=== PATIENT | female | born 1945 | race Caucasian/White ===

== ENCOUNTER → 2020-07-23 | Outpatient (CLI) | payer MEDICARE, OTHER ==
[~2020-07-23] MED LIST: IOHEXOL 240 MG/ML 50ML VIAL. ONE; IOHEXOL 240 MG/ML 50ML VIAL. PO ONE; IOHEXOL 300 MG/ML 75 ML VIAL. IV ONE
[2020-07-23 10:42] LABS: CREATININE 0.8 mg/dL (0.6-1.0); GFR 69.7
--- NOTE | 2020-07-23 17:09 | RAD ---
PQRS Compliance Statement: One or more of the following individualized dose reduction techniques were utilized for this examinat ion: 1. Automated exposure control 2. Adjustment of the mA and/or kV according to patient size 3. Use of iterative reconstruction technique CT abdomen/pelvis with contrast 07/23/2020 10:08 AM INDICATION: Left upper quadrant abdominal pain, lower pelvic pain COMPARISON: None available TECHNIQUE: Multiple axial CT images of the abdomen and pelvis were obtained after the intravenous adm inistration of 75 mL nonionic contrast. Coronal and sagittal reformats are provided. FINDINGS: There is an 8 mm solid noncalcified pulmonary nodule in the right middle lobe (series 2, image 5). He art size is within normal limits. There is a 2.7 x 1.9 cm cyst in the lateral right lower lobe. No huang spicious hepatic lesions. Liver, spleen, bilateral adrenal gland, pancreas and gallbladder are normal in appearance. Abdominal aorta is normal in course and caliber with dense calcified atheromatous vivien que. There are no pathologically enlarged lymph nodes identified within the abdomen and pelvis. There is no free fluid or free intraperitoneal air. The kidneys enhance symmetrically. There is no suspicious renal mass. There is no hydronephrosis. The re are no suspected calculi within the kidneys, ureters or urinary bladder. There is moderate to advanced colonic diverticulosis without adjacent inflammatory changes. Oral cont rast was administered. Opacified bowel loops since her normal mucosal fold pattern. Appendix is not d efinitively visualized. No pericecal inflammatory changes are identified. Stomach is normal in appear ance. Urinary bladder is within normal limits given degree of distention. No suspicious pelvic mass. No suspicious osseous abnormality is identified. There is moderate to advanced disc height loss at L5 -S1 with endplate degenerative changes. IMPRESSION: 1. There is an 8 mm solid noncalcified pulmonary nodule in the right middle lobe. Recommended 3-6 mon th follow-up chest CT. 2. No pathologically enlarged lymph nodes are identified within the abdomen and pelvis. 3. Moderate to advanced colonic diverticulosis without adjacent inflammatory changes. Electronically signed by: Valentina Palmer MD (07/23/2020 5:07 PM) [id number]
== END ==
LOC: CT 09:31
PROVIDERS: ATTEND Family Medicine
DX: K57.30 Diverticulosis of large intestine without perforation or abscess without bleeding (principal); R91.1 Solitary pulmonary nodule; M47.817 Spondylosis without myelopathy or radiculopathy, lumbosacral region; J98.4 Other disorders of lung; I70.0 Atherosclerosis of aorta
CPT/HCPCS: 36415; 74177; 82565; 84520; Q9967

== ENCOUNTER → 2020-11-01 | Outpatient (CLI) | payer MEDICARE, OTHER ==
--- NOTE | 2020-11-01 16:48 | RAD ---
CT THORAX WO History: Follow-up pulmonary nodule. Technique: Noncontrast CT of the chest was performed. Coronal and sagittal reconstructions were perfo rmed. Exposure: One or more of the following individualized dose reduction techniques were utilized for thi s examination: 1. Automated exposure control 2. Adjustment of the mA and/or kV according to patient size 3. Use of iterative reconstruction technique. Comparison: CT abdomen pelvis July 23, 2020 Findings: Chest: Coronary artery calcifications. Atheromatous plaque within the aorta. No pathologic lymphadeno rian. No consolidation or pleural effusion. No pneumothorax. Left lower lobe bleb, unchanged. 8 x 7 mm right middle lobe pulmonary nodule (series 2 image 60), unchanged. Mild right middle lobe li near atelectasis or scarring, unchanged. Right lower lobe 4 mm nodule along the fissure (image 50). R ight lower lobe 7 x 6 mm pulmonary nodule (image 45), not included in the image previously. 3 mm left upper lobe pulmonary nodule (image 39). 3 mildly left lower lobe pulmonary nodule (image 45). 2 mm l eft lower lobe pulmonary nodule (image 37). Left thyroid nodule measures 7 mm. Upper abdomen: Right hepatic lobe cyst, unchanged. Bones: No pathologic osseous lesions. Impression: 1. Multiple pulmonary nodules most prominent within the right middle and lower lobe. Recommend 6 mon th follow-up CT to ensure stability. 2. Right middle lobe pulmonary nodules unchanged compared to CT abdomen and pelvis. Additional nodul es not included in the images previously. Electronically signed by: Devan Hernandez DO (11/01/2020 4:45 PM) [id number]
== END ==
LOC: CT 11:11
PROVIDERS: ATTEND Family Medicine
DX: J98.11 Atelectasis (principal); R91.1 Solitary pulmonary nodule; K76.89 Other specified diseases of liver
CPT/HCPCS: 71250

== ENCOUNTER → 2021-05-07 | Outpatient (CLI) | payer MEDICARE, OTHER ==
--- NOTE | 2021-05-07 09:36 | RAD ---
EXAM: Chest CT without intravenous contrast. HISTORY: Pulmonary nodule follow-up. TECHNIQUE: Computed tomographic images of the chest were obtained without contrast. Multiplanar refor matting was performed. *One or more of the following individualized dose reduction techniques were utilized for this examina tion: 1. Automated exposure control. 2. Adjustment of the mA and/or kV according to patient size. 3. Use of iterative reconstruction technique. COMPARISON: 11/01/2020 and 07/23/2020. FINDINGS: The heart is normal in size. There is calcified atherosclerotic plaque involving the bueno ry arteries. No pathologically enlarged mediastinal or hilar lymph node is seen. There are multiple solid noncalcified pulmonary nodules. The largest lesion is a 1.2 cm solid nodule within the right middle lobe, best measured on coronal images (series 3, image 118). This is slightly increased compared to the prior exam. There is a stable 8 mm nodule within the right lower lobe (ser ies 5, image 143. There is a stable 5 mm nodule within the right middle lobe (series 5, image 141). T here is a stable 3 mm nodule within the right lower lobe along the major fissure (series 5, image 148 ). There are a few additional 2 mm bilateral pulmonary nodules which are stable in appearance. There is linear medial right middle lobe atelectasis or scarring. There is mild emphysema. There is a left lower lobe pulmonary cyst or pneumatocele and small paramediastinal bulla. There is posterior d ependent and basilar atelectasis. There is a 2.7 cm cyst within the lateral right hepatic lobe. There is no acute finding involving the upper abdomen. There is no suspicious or acute osseous finding. IMPRESSION: 1. Multiple pulmonary nodules, largest which measures 1.2 cm within the right middle lobe and is slig htly increased compared to the prior exam when allowing for differences in slice position and measure ment technique. Given interval change and size of this lesion, PET/CT may be useful for characterizat ion. There are additional pulmonary nodules measuring up to 8 mm which are stable. 2. Mild emphysema. Electronically signed by: Deisy Self MD (05/07/2021 9:33 AM) [id number]
== END ==
LOC: CT 08:48
PROVIDERS: ATTEND Family Medicine
DX: R91.8 Other nonspecific abnormal finding of lung field (principal); J43.9 Emphysema, unspecified; J98.11 Atelectasis; I25.10 Atherosclerotic heart disease of native coronary artery without angina pectoris; K76.89 Other specified diseases of liver
CPT/HCPCS: 71250

== ENCOUNTER 2021-05-22 16:40 | Emergency (ER) | payer MEDICARE, OTHER ==
[~2021-05-22] VITALS: Ht 160 cm; Wt 53.1 kg
--- NOTE | 2021-05-22 17:17 | RAD ---
Right shoulder 2 views. HISTORY: Fall at home 2 views were taken of the right shoulder. There is an anterior dislocation of the right shoulder. An acute fracture is not identified. IMPRESSION: 1. Anterior dislocation right shoulder. Electronically signed by: Jose Menard MD (05/22/2021 5:14 PM) [id number]
--- NOTE | 2021-05-22 17:29 | PHYS DOC ---
Past History Additional Past Medical Histor: Colon problem, lung nodule (JOHN DUCKWORTH APRN) Past Surgical History: Appendectomy, Tonsillectomy (JOHN DUCKWORTH APRN) Alcohol Use: Occasionally (JOHN DUCKWORTH APRN) General Adult EDM: Chief Complaint: UPPER EXTREMITY INJURY HPI: HPI: Patient is a 75-year-old female presents with right upper arm pain after falling. Patient states that she tripped over a box and fell into a door. Reports throbbing pain in her upper right arm and shoulder. Denies taking anything for pain prior to arrival. Denies hitting head or loss of conscio usness. (JOHN DUCKWORTH APRN) Review of Systems: Review of Systems: ROS At least 10 ROS systems have been reviewed and are negative except as documented in the HPI. General: Negative except as outlined in HPI above. Skin: Negative except as outlined in HPI above. HEENT: Negative except as outlined in HPI above. Neck: Negative except as outlined in HPI above. Respiratory: Negative except as outlined in HPI above.. Cardiovascular: Negative except as outlined in HPI above. Abdomen: Negative except as outlined in HPI above. : Negative except as outlined in HPI above. Back/MSK: Negative except as outlined in HPI above. Neuro: Negative except as outlined in HPI above. Psych: Negative except as outlined in HPI above. (JOHN DUCKWORTH APRN) Allergies: Allergies: Allergies Coded Allergies Type Severity Reaction Last Updated Verified amlodipine Allergy Unknown 07/23/20 Yes perindopril Allergy Unknown 07/23/20 Yes (JOHN DUCKWORTH APRN) Physical Exam: PE: Constitutional: Well developed, well nourished, no acute distress, non-toxic appearance. [] HENT: Normocephalic, atraumatic, bilateral external ears normal, oropharynx moist, no oral exudates, nose normal. [] Eyes: PERRLA, EOMI, conjunctiva normal, no discharge. [] Neck: Normal range of motion, no tenderness, supple, no stridor. [] Cardiovascular:Heart rate regular rhythm, no murmur [] Lungs & Thorax: Bilateral breath sounds clear to auscultation [] Abdomen: Bowel sounds normal, soft, no tenderness, no masses, no pulsatile masses. [] Skin: Warm, dry, no erythema, no rash. [] Back: No tenderness, no CVA tenderness. [] Extremities: Right arm tenderness, no cyanosis, no clubbing, ROM intact, no edema. [] Neurologic: Alert and oriented X 3, normal motor function, normal sensory function, no focal deficits noted. [] Psychologic: Affect normal, judgement normal, mood normal. [] (JOHN DUCKWORTH APRN) Current Patient Data: Vital Signs: Vital Signs Date Time Temp Pulse Resp B/P (MAP) Pulse Ox O2 Delivery O2 Flow Rate FiO2 05/22/21 16:41 97.8 63 16 165/76 (105) 99 Room Air (JOHN DUCKWORTH APRN) EKG: EKG: [] (JOHN DUCKWORTH APRN) Radiology/Procedures: Radiology/Procedures: [ri]ght shoulder 2 views. HISTORY: Fall at home 2 views were taken of the right shoulder. There is an anterior dislocation of the right shoulder. An acute fracture is not identified. IMPRESSION: 1. Anterior dislocation right shoulder. Electronically signed by: Jose Menard MD (05/22/2021 5:14 PM) [id number] (JOHN DUCKWORTH APRN) Heart Score: C/O Chest Pain: No Risk Factors: Risk Factors: DM, Current or recent (<one month) smoker, HTN, HLP, family history of CAD, obesity. Risk Scores: Score 0 - 3: 2.5% MACE over next 6 weeks - Discharge Home Score 4 - 6: 20.3% MACE over next 6 weeks - Admit for Clinical Observation Score 7 - 10: 72.7% MACE over next 6 weeks - Early Invasive Strategies (JOHN DUCKWORTH APRN) Course & Med Decision Making: Course & Med Decision Making Pertinent Labs and Imaging studies reviewed. (See chart for details) [] 75-year-old female presents with right arm pain after falling and tripping over a box. Patient fell into her door with her right shoulder. Patient is unable to move arm due to pain. Patient given hydrocodone for pain. Shoulder x-ray ordered to rule out fracture. Shoulder x-ray shows Anterior dislocation right shoulder. Discussed results with patient. Patient given 100 mics of fentanyl for pain. Shoulder was manipulated back into place. Patient reports pain was relieved. Advised patient she needs to follow back up with Ortho and gave contact information. Patient sent home with hydrocodone for pain. Instructed patient to take ibuprofen and Tylenol for breakthrough pain as well. Discussed return precautions in length with patient. Patient is hemodynamically stable upon d isposition. (JOHN DUCKWORTH APRN) Course & Med Decision Making Did not see or evaluate patient. Did not discuss patient with LIVE TRUCK TECHNICIAN. Agree with LIVE TRUCK TECHNICIAN's work-up and disposition per note. (GUS OMALLEY MD) Dragon Disclaimer: Dragon Disclaimer: This electronic medical record was generated, in whole or in part, using a voice recognition dictation system. (JOHN DUCKWORTH APRN) Departure Departure: Impression: Primary Impression: Shoulder dislocation Qualified Codes: S43.004A - Unspecified dislocation of right shoulder joint, initial encounter Disposition: HOME / SELF CARE / HOMELESS Condition: STABLE Referrals: AMANDA CHARLES MD (PCP) Patient Instructions: Shoulder Dislocation, [id number] Additional Instructions: You were seen in the emergency room for right shoulder pain after a fall. Your shoulder was dislocated and was placed back in place. I am sending you home with pain medication. Use ibuprofen for breakthrough pain. Please call [facility] and make a follow-up appointment. I have included their number below. Return to emergency room with worsening symptoms or concerns [facility] [address] [place] [address] EMERGENCY DEPARTMENT GENERAL DISCHARGE INSTRUCTIONS Thank you for coming to [facility] (ED) today and trusting us with you care. We trust that you had a positivie experience in our Emergency Department. If you wish to speak to the department management, you may call the director at [phone]. YOUR FOLLOW UP INSTRUCTIONS ARE FOLLOWS: 1. Do you have a private Doctor? If you do not have a private doctor, please ask for a esource list of physicians or clinics that may be able to assist you with follow up care. 2. The Emergency Physician has interpreted your x-rays. The X-Ray specialist will also review them. If there is a change in the findings, you will be notified in 48 hours when at all possible. 3. A lab test or culture has been done, your results will be reviewed and you will be notified if you need a change in treatment. ADDITIONAL INSTRUCTIONS AND INFORMATION: 1. Your care today has been supervised by a physician who is specially trained in emergency care. Many problems require more than one evaluation for a complete diagnosis and treatment. We recommend that you schedule your follow up appointment as recommended to ensure complete treatment of you illness or injury. If you are unable to obtain follow up care and continue to have a problem, or if your condition worsens, we recommend that you return to the ED. 2. We are not able to safely determine your condition over the phone nor are we able to give sound medical advice over the phone. For these safety reasons, if you call for medical advice we will ask you to come to the ED for further evaluation. 3. If you have any questions regarding these discharge instructions please call the ED at [phone]. SAFETY INFORMATION: In the interest of safety, wellness, and injury prevention; we encourage you to wear your sealbelt, if you smoke; quite smoking, and we encourage family to use a protective helmet for bicycling and other sporting events that present an increased risk for head injury. IF YOUR SYMPTOMS WORSEN OR NEW SYMPTOMS DEVELOP, OR YOU HAVE CONCERNS ABOUT YOUR CONDITION; OR IF YOUR CONDITION WORSENS WHILE YOU ARE WAITING FOR YOUR FOLLOW UP APPOINTMENT; EITHER CONTACT YOUR PRIMARY CARE DOCTOR, THE PHYSICIAN WHOSE NAME AND NUMBER YOU WERE GIVEN, OR RETURN TO THE ED IMMEDIATELY. Scripts Hydrocodone Bit/Acetaminophen (HYDROCODONE-APAP 5-325 ) 1 Each Tablet 1-2 TAB PO PRN Q6HRS PRN for PAIN for 3 Days, #20 TAB 0 Refills Prov: JOHN DUCKWORTH APRN 05/22/21 JOHN DUCKWORTH APRN May 22, 2021 17:29 GUS OMALLEY MD May 22, 2021 22:01
--- NOTE | 2021-05-22 17:33 | EKG ---
[address] [address] Test Date: 2021-05-22 Test Time: 17:25:17 Pat Name: RONALD ALVAREZ Department: Room: Gender: F [employer] Kiss Maker: JOSE : 1945 Requested By: JOHN DUCKWORTH Order Number: [id number] Reading MD: Dwayne Brink MD Measurements Intervals [place] Rate: 69 P: 32 HI: 126 QRS: -1 QRSD: 82 T: 26 QT: 412 QTc: 443 Interpretive Statements SINUS RHYTHM Electronically Signed On 05-22-2021 17:33:48 CDT by Dwayne Brink MD
--- NOTE | 2021-05-22 18:34 | RAD ---
Right shoulder x-ray one view HISTORY: Reduction. COMPARISON: Right shoulder x-ray May 22, 2021 FINDINGS: There is persistent anterior subcoracoid humeral head dislocation. No fracture evident. No distraction of the acromioclavicular joint evident. IMPRESSION: Persistent anterior humeral head dislocation. Electronically signed by: Aneudy Torrez MD (05/22/2021 6:31 PM) [email or web address]
[2021-05-22] MEDS ORDERED: HYDR-2155 PO (19:03)
[2021-05-22] MEDS: HYDROcodone/APAP 5/325MG 1 TAB TABLET PO ONE (19:05)
[2021-05-22 19:06] VITALS: BP 168/70
== END 2021-05-22 19:28 | disposition home or self-care (01) ==
LOC: ER 16:40
DX: S43.004A Unspecified dislocation of right shoulder joint, initial encounter (principal); W18.09XA Striking against other object with subsequent fall, initial encounter; Y93.89 Activity, other specified; Y92.89 Other specified places as the place of occurrence of the external cause; Y99.8 Other external cause status; Z88.8 Allergy status to other drugs, medicaments and biological substances
CPT/HCPCS: 23650; 73020; 73030; 93005; 99284; J3010

== ENCOUNTER → 2021-07-12 | Outpatient (CLI) | payer MEDICARE, OTHER ==
[~2021-07-12] MED LIST changes: +HYDR-2155 PO; -IOHEXOL 240 MG/ML 50ML VIAL. ONE; -IOHEXOL 240 MG/ML 50ML VIAL. PO ONE; -IOHEXOL 300 MG/ML 75 ML VIAL. IV ONE
--- NOTE | 2021-07-12 16:50 | RAD ---
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 There is que stionable cortical offset along the proximal lateral humerus which could be postoperative although sm all nondisplaced fractures not excluded. The acromioclavicular joint is unremarkable. IMPRESSION: New reverse right total shoulder prosthesis. Questionable cortical offset along the prox imal lateral humerus could be a small nondisplaced fracture or postoperative changes. Recommend atten tion on follow-up. Electronically signed by: Niki Cintron MD (07/12/2021 4:48 PM) [id number]
== END ==
LOC: RAD 08:20
PROVIDERS: ATTEND Physician Assistant
DX: Z47.1 Aftercare following joint replacement surgery (principal); M25.511 Pain in right shoulder; Z96.611 Presence of right artificial shoulder joint
CPT/HCPCS: 73030

== ENCOUNTER → 2021-08-09 | Outpatient (CLI) | payer MEDICARE, OTHER ==
--- NOTE | 2021-08-09 10:25 | RAD ---
XR SHOULDER_RIGHT 2+ VIEWS 08/09/2021 8:41 AM INDICATION: Right shoulder replacement June 2021 COMPARISON: None available. TECHNIQUE: 2 views of the right shoulder are provided. FINDINGS/ IMPRESSION: Right total shoulder arthroplasty changes are present. No definite periprostatic fracture. Hardware i s well aligned. No lucency surrounding the hardware or findings to suggest hardware failure. Electronically signed by: Valentina Palmer MD (08/09/2021 10:22 AM) [id number]
== END ==
LOC: RAD 08:33
PROVIDERS: ATTEND Physician Assistant
DX: M25.511 Pain in right shoulder (principal); Z96.611 Presence of right artificial shoulder joint
CPT/HCPCS: 73030